=== PATIENT | female | born 1985 ===

== ENCOUNTER 2017-04-07 14:03 | Inpatient (IN) | payer OTHER ==
[2017-04-07 15:09] LABS: RBC URINE 5 /hpf (0-3); URINE BACTERIA RARE (<OCC); URINE BILIRUBIN NEGATIVE (NEGATIVE); URINE BLOOD SMALL (NEGATIVE); URINE COLOR YELLOW (YELLOW); URINE GLUCOSE (UA) NEG (Normal); URINE KETONE 20 mg/dL (NEGATIVE); URINE LEUKOCYTE ESTERASE NEG Leu/uL (Negative); URINE PROTEIN 100 mg/dL (NEGATIVE); URINE UROBILINOGEN 0.2-1.0 mg/dL (0.2-1.0); WBC URINE 5 /hpf (0-5)
[2017-04-07 15:30] LABS: BASO # 0.1 K/uL (0.0-0.2); BASO % 0.7 % (0.0-2.0); EOS % 0.3 % (0.0-4.0); HEMATOCRIT 37.7 % (34.0-47.0); LYMPH # 1.6 K/uL (1.0-4.3); MEAN CORPUSCULAR HEMOGLOBIN 28.9 pg (27.0-31.0); MONO # 0.7 K/uL (0.0-0.8); MONO % 9.4 % (0.0-10.0); NEUT # 5.3 K/uL (1.8-7.0); NEUT % 68.6 % (50.0-75.0); NRBC % 0.1 % (0.0-0.0); RED CELL DISTRIBUTION WIDTH 13.5 % (11.5-14.5); WHITE BLOOD COUNT 7.7 K/uL (4.8-10.8)
[2017-04-07 15:58] LABS: BLOOD UREA NITROGEN 5 mg/dl (7-17); GFR AFRICAN-AMERICAN > 60; GLUCOSE,RANDOM 101 mg/dL (65-105)
[2017-04-07 15:59] LABS: ALB/GLOB RATIO 1.4 (1.0-2.1); ALCOHOL SERUM < 10 mg/dl (0-10); ALKALINE PHOSPHATASE 66 U/L (38-126); ALT/SGPT 27 U/L (9-52); AST/SGOT 23 U/L (14-36); BILIRUBIN,TOTAL 0.5 mg/dl (0.2-1.3); CALCIUM 9.7 mg/dL (8.4-10.2); CARBON DIOXIDE 23 mmol/L (22-30); CHLORIDE 107 mmol/L (98-107); POTASSIUM 3.3 MMOL/L (3.6-5.0); SODIUM 145 mmol/l (132-148); TOTAL PROTEIN 7.8 G/DL (6.3-8.2)
[2017-04-07 18:01] VITALS: O2SAT 99
[2017-04-07] MEDS ORDERED: Alum-Mag Hydrox-Simethicone Susp (30 mL) PO PRN (21:54)
[2017-04-07] MEDS ORDERED: DiphenhydrAMINE 50 mg/ml Inj IM PRN (21:54)
[2017-04-07] MEDS ORDERED: Magnesium Hydroxide Susp 30 ml UD PO PRN (21:54)
[2017-04-08 08:55] LABS: T4 14.3 ug/dl (5.5-11.0)
[2017-04-08 09:09] LABS: THYROID STIMULATING HORMONE 1.02 mIU/ML (0.46-4.68)
[2017-04-08] MEDS: Risperidone M TAB 2 MG PO SCH (14:21)
[2017-04-09] MEDS: Risperidone M TAB 2 MG PO SCH (09:15)
[2017-04-09 16:51] VITALS: BP 119/76; PULSE 85; RESP 18; TEMP 97.9
== END 2017-04-09 16:00 | DRG 430 ==
LOC: H.ER 14:03 → H.EROBSV 14:21 → H.ERHOLD 17:40 → H.PSYCH 21:07 → OBSVTOIN 22:23
PROVIDERS: ADMIT Psychiatry & Neurology Psychiatry; ATTEND Psychiatry & Neurology Psychiatry
PROC: GZHZZZZ Group Psychotherapy (ICD-10-PCS; principal; 2017-04-07)
DX: F25.9 Schizoaffective disorder, unspecified (principal); F06.8 Other specified mental disorders due to known physiological condition; F12.159 Cannabis abuse with psychotic disorder, unspecified; J45.909 Unspecified asthma, uncomplicated; F32.9 Major depressive disorder, single episode, unspecified; M54.5 Low back pain